=== PATIENT | male | born 1995 | race Hispanic/Latino ===

== ENCOUNTER 2022-08-29 09:29 | Emergency (ER) | payer BC, OTHER ==
[~2022-08-29] VITALS: Ht 175.3 cm; Wt 99.8 kg
[~2022-08-29 09:29] MED LIST: ACETAMINOPHEN-1 EAC4 PO
[2022-08-29] MEDS ORDERED: IBUPROFEN 600 MG TAB PO STA (09:37)
== END 2022-08-29 09:56 | disposition home or self-care (01) ==
LOC: ER 09:36
DX: R07.81 Pleurodynia (principal); X50.1XXA Overexertion from prolonged static or awkward postures, initial encounter; Y92.89 Other specified places as the place of occurrence of the external cause
CPT/HCPCS: 99283